=== PATIENT | female | born 1980 | race Hispanic/Latino ===

== ENCOUNTER 2020-08-02 13:36 | Emergency (ER) | payer MEDICAID ==
[2020-08-02] MEDS ORDERED: KETOROLAC TROMETHAMINE 60 MG/2 ML VIAL ONE (15:26)
[2020-08-02] MEDS ORDERED: CYCLOBENZAPRINE HCL 10 MG TABLET ONE (15:26)
[2020-08-02] MEDS ORDERED: TETANUS/DIPHTHERIA TOXOID [ADULT] 0.5 ML VIAL IM ONE (15:27)
== END 2020-08-02 17:11 | disposition home or self-care (01) ==
LOC: EDH 13:36
DX: S16.1XXA Strain of muscle, fascia and tendon at neck level, initial encounter (principal); S20.229A Contusion of unspecified back wall of thorax, initial encounter; S20.219A Contusion of unspecified front wall of thorax, initial encounter; S80.812A Abrasion, left lower leg, initial encounter; F41.9 Anxiety disorder, unspecified; F31.9 Bipolar disorder, unspecified; Z90.49 Acquired absence of other specified parts of digestive tract; Z98.890 Other specified postprocedural states; Z72.0 Tobacco use; Y04.0XXA Assault by unarmed brawl or fight, initial encounter; Y93.89 Activity, other specified; Y92.89 Other specified places as the place of occurrence of the external cause; Y99.8 Other external cause status
CPT/HCPCS: 36415; 71045; 72100; 72125; 84702; 90471; 90714; 96372; 99285; J1885